=== PATIENT | female | born 1975 | race Caucasian/White ===

== ENCOUNTER 2017-12-01 15:30 | Emergency (ER) | payer SELFPAY ==
--- NOTE | 2017-12-01 16:47 | EDPHYS ---
Physician Documentation [facility] Name: Aundrea Cisneros Age: 42 yrs Sex: Female : 1975 Arrival Date: 12/01/2017 Time: 15:30 Bed 12 Private MD: ED Physician Bret Werner HPI: 12/01 16:40 This 42 yrs old Female presents to ER via Ambulatory with complaints of pm1 Dental pain. 16:40 The patient presents with pain, swelling. The problem is located in the lower left pm1 second molar and lower left first molar. 16:41 Onset: The symptoms/episode began/occurred 1 week(s) ago. Duration: The symptoms are pm1 continuous. Modifying factors: The symptoms are alleviated by nothing, the symptoms are aggravated by chewing, food. Associated signs and symptoms: Pertinent positives: swelling, Pertinent negatives: dysphagia, fever, inability to eat. Severity of symptoms: in the emergency department the symptoms have improved. The patient has experienced similar episodes in the past, several times. Has not seen a dentist in 2 years. Has an appointment next week. Patient with pain to lower right molars last week with right jaw swelling. Right jaw swelling has resolved but now patient with pain to left lower molars. Patient has appointment with dentist next week. 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 - Social history:: Smoking status: Patient/guardian denies using tobacco. ROS: 16:41 Constitutional: Negative for fever, chills, and weight loss, Eyes: Negative for injury, pm1 pain, redness, and discharge. 16:41 Neck: Negative for injury, pain, and swelling, Cardiovascular: Negative for chest pain, palpitations, and edema, Respiratory: Negative for shortness of breath, cough, wheezing, and pleuritic chest pain, Abdomen/GI: Negative for abdominal pain, nausea, vomiting, diarrhea, and constipation, Back: Negative for injury and pain, MS/Extremity: Negative for injury and deformity, Skin: Negative for injury, rash, and discoloration, Neuro: Negative for headache, weakness, numbness, tingling, and seizure. 16:41 ENT: Positive for dental pain, Negative for ear pain, sore throat, difficulty swallowing, difficulty handling secretions, hoarseness. Exam: 16:41 Constitutional: This is a well developed, well nourished patient who is awake, alert, pm1 and in no acute distress. Head/Face: Normocephalic, atraumatic. Eyes: Pupils equal round and reactive to light, extra-ocular motions intact. Lids and lashes normal. Conjunctiva and sclera are non-icteric and not injected. Cornea within normal limits. Periorbital areas with no swelling, redness, or edema. 16:41 Neck: Trachea midline, no thyromegaly or masses palpated, and no cervical lymphadenopathy. Supple, full range of motion without nuchal rigidity, or vertebral point tenderness. No Meningismus. Chest/axilla: Normal chest wall appearance and motion. Nontender with no deformity. No lesions are appreciated. Cardiovascular: Regular rate and rhythm with a normal S1 and S2. No gallops, murmurs, or rubs. Normal PMI, no JVD. No pulse deficits. Respiratory: Lungs have equal breath sounds bilaterally, clear to auscultation and percussion. No rales, rhonchi or wheezes noted. No increased work of breathing, no retractions or nasal flaring. Back: No spinal tenderness. No costovertebral tenderness. Full range of motion. Skin: Warm, dry with normal turgor. Normal color with no rashes, no lesions, and no evidence of cellulitis. MS/ Extremity: Pulses equal, no cyanosis. Neurovascular intact. Full, normal range of motion. 16:41 ENT: External ear(s): are unremarkable, Ear canal(s): are normal, TM's: are normal, Nose: is normal, Mouth: Lips: normal, Oral mucosa: normal, Gums: normal with healthy appearance, Dental exam: dental caries, that is moderate, diffusely, missing teeth, diffusely, pain, that is mild, specifically in the lower left second molar (#18) and lower left first molar (#19). 16:41 Neuro: Orientation: is normal, Motor: is normal, moves all fours, Gait: is steady, at a normal pace, without difficulty. Vital Signs: 15:41 BP 131 / 99; Pulse 92; Resp 20; Temp 98.8; Pulse Ox 97% on R/A; Weight 89.81 kg; Height ph 5 ft. 3 in. (160.02 cm); Pain 10/10; 16:55 BP 127 / 94; Pulse 89; Resp 18; Temp 97.6; Pulse Ox 99% on R/A; Pain 8/10; ph 15:41 Body Mass Index 35.07 (89.81 kg, 160.02 cm) ph MDM: 16:33 Patient medically screened. pm1 16:41 Data reviewed: vital signs. Data interpreted: Pulse oximetry: on room air is 97 %. pm1 Interpretation: normal. Counseling: I had a detailed discussion with the patient and/or guardian regarding: the historical points, exam findings, and any diagnostic results supporting the discharge/admit diagnosis, the need for outpatient follow up, for definitive care, a dentist, to return to the emergency department if symptoms worsen or persist or if there are any questions or concerns that arise at home. Administered Medications: 16:45 Drug: Gab[place] 10 mg-325 mg 1 tabs Route: PO; 16:56 Follow up: Response: No adverse reaction; Pain is decreased ph Disposition: 12/01/17 16:47 Discharged to Home. Impression: Dental pain, Dental caries. - Condition is Stable. - Discharge Instructions: Dental Pain. - Prescriptions for Clindamycin HCl 300 mg Oral Capsule - take 1 capsule by ORAL route every 6 hours for 10 days; 40 capsule. Tylenol- Codeine #3 300-30 mg Oral Tablet - take 2 tablets by ORAL route every 6 hours As needed; 20 tablet. - Medication Reconciliation Form, Thank You Letter, Antibiotic Education, Prescription Opioid Use form. - Follow up: Emergency Department; When: As needed; Reason: Worsening of condition. Follow up: Private Physician; When: 2 - 3 days; Reason: Recheck today's complaints, Continuance of care, Re-evaluation by your physician. - Problem is new. - Symptoms have improved. Addendum: 12/05/2017 07:18 Co-signature as Attending Physician, Bret Werner MD. g s Signatures: Cherelle Barnes RN RN Tiny Crespo RN RN Franklin Israel, SALES ATTENDANT SALES ATTENDANT pm1 Werner, Bret, MD MD gs
--- NOTE | 2017-12-01 16:47 | ER ---
Nurse's Notes [facility] Name: Aundrea Cisneros Age: 42 yrs Sex: Female : 1975 Arrival Date: 12/01/2017 Time: 15:30 Bed 12 Private MD: Diagnosis: Dental pain;Dental caries Presentation: 12/01 15:37 Presenting complaint: Patient states: " I have had an abscess in my mouth since last ph week, the pain started in the left side of my jaw and now it's moved to the the R side. I tried to get into the dentist but they said it would be 2 weeks." Swelling noted to L jaw, denies fever, N/V/D. Transition of care: patient was not received from another setting of care. Onset of symptoms was December 01, 2017. 15:37 Method Of Arrival: Ambulatory ph 15:37 Acuity: ALEXANDRO 4 ph 16:54 Care prior to arrival: None. 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 - Social history:: Smoking status: Patient/guardian denies using tobacco. Screenin:54 Abuse screen: Denies threats or abuse. Denies injuries from another. Nutritional ph screening: No deficits noted. Tuberculosis screening: No symptoms or risk factors identified. Fall Risk None identified. Assessment: 16:30 General: Appears in no apparent distress. uncomfortable, Behavior is calm, cooperative, ph appropriate for age, Denies fever. Pain: Complains of pain in chin, right jaw and left jaw. Neuro: Level of Consciousness is awake, alert, obeys commands, Oriented to person, place, time, situation. Cardiovascular: Capillary refill < 3 seconds Patient's skin is warm and dry. Respiratory: Airway is patent Respiratory effort is even, unlabored, Respiratory pattern is regular, symmetrical. GI: No signs and/or symptoms were reported involving the gastrointestinal system. EENT: Poor dentition noted. Derm: Skin is intact, is healthy with good turgor, Skin is pink, warm \\T\\ dry. Musculoskeletal: Circulation, motion, and sensation intact. Range of motion: intact in all extremities. 16:55 Reassessment: Patient appears in no apparent distress at this time. Patient and/or ph family updated on plan of care and expected duration. Pain level reassessed. Patient is alert, oriented x 3, equal unlabored respirations, skin warm/dry/pink. Patient denies pain at this time. Patient states symptoms have improved. Critical care time stopped, patient has stabilized. Discharged home with pain meds and antibiotics. Vital Signs: 15:41 BP 131 / 99; Pulse 92; Resp 20; Temp 98.8; Pulse Ox 97% on R/A; Weight 89.81 kg; Height ph 5 ft. 3 in. (160.02 cm); Pain 10/10; 16:55 BP 127 / 94; Pulse 89; Resp 18; Temp 97.6; Pulse Ox 99% on R/A; Pain 8/10; ph 15:41 Body Mass Index 35.07 (89.81 kg, 160.02 cm) ph ED Course: 15:30 Patient arrived in ED. as 15:41 Triage completed. ph 15:43 Arm band placed on. ph 16:33 Franklin Israel NP is PHCP. pm1 16:33 Bret Werner MD is Attending Physician. pm1 16:45 Cherelle Barnes RN is Primary Nurse. ss 16:54 Patient has correct armband on for positive identification. Call light in reach. ph 16:54 No provider procedures requiring assistance completed. Patient did not have IV access ph during this emergency room visit. Administered Medications: 16:45 Drug: [place] 10 mg-325 mg 1 tabs Route: PO; ss 16:56 Follow up: Response: No adverse reaction; Pain is decreased ph Outcome: 16:47 Discharge ordered by MD. pm1 16:55 Discharged to home ambulatory. ph 16:55 Condition: good 16:55 Discharge instructions given to patient, Instructed on discharge instructions, follow up and referral plans. medication usage, Demonstrated understanding of instructions, follow-up care, medications. 16:56 Patient left the ED. ph Signatures: Jessica Arceo Shelby, RN RN Tiny Crespo RN RN Franklin Israel NP FRONT OF HOUSE MANAGER pm1
[2017-12-01] MEDS ORDERED: HYDROCODONE/APAP 10/325 TAB ONE (17:01)
[2017-12-01 17:08] VITALS: BP 127/94; TEMP 97.6; O2SAT 99
== END 2017-12-01 16:56 | disposition home or self-care (01) ==
LOC: ER 15:30
DX: K02.9 Dental caries, unspecified (principal)
CPT/HCPCS: 99283

== ENCOUNTER 2018-02-02 19:01 | Emergency (ER) | payer SELFPAY ==
[2018-02-02] MEDS ORDERED: ALBUTEROL 2.5 MG/3 ML NEB SOL ONE (19:26)
[2018-02-02] MEDS ORDERED: DEXAMETHASONE 10 MG/ML VIAL ONE (19:26)
[2018-02-02] MEDS ORDERED: IPRATROPIUM BROM 0.5MG/2.5ML ONE (19:27)
--- NOTE | 2018-02-02 21:32 | ER ---
Nurse's Notes [facility] Name: Aundrea Cisneros Age: 43 yrs Sex: Female : 1975 Arrival Date: 02/02/2018 Time: 19:03 Bed 19 Private MD: None, None Diagnosis: Unspecified asthma with (acute) exacerbation Presentation: 02/02 19:08 Presenting complaint: Patient states: I have a hx of asthma and chronic bronchitis, I lp1 feel heaviness in my chest and feel like I'm wheezing, my head hurts; Denies any fever; States moving lots of boxes from old house with lots of dust. Transition of care: patient was not received from another setting of care. Onset of symptoms was February 01, 2018. Risk Assessment: Do you want to hurt yourself or someone else? Patient reports no desire to harm self or others. Initial Sepsis Screen: Does the patient meet any 2 criteria? No. Patient's initial sepsis screen is negative. Does the patient have a suspected source of infection? No. Patient's initial sepsis screen is negative. Care prior to arrival: None. 19:08 Method Of Arrival: Ambulatory lp1 19:08 Acuity: ALEXANDRO 4 lp1 Triage Assessment: 19:13 General: Appears in no apparent distress. Behavior is calm, cooperative, appropriate lp1 for age. Pain: Complains of pain in head Pain currently is 5 out of 10 on a pain scale. Respiratory: Reports cough that is persistent Onset: The symptoms/episode began/occurred yesterday, the patient has mild shortness of breath. 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 - Social history:: Smoking status: Patient/guardian denies using tobacco. - Ebola Screening: : No symptoms or risks identified at this time. Screenin:13 Abuse screen: Denies threats or abuse. Denies injuries from another. Nutritional lp1 screening: No deficits noted. Tuberculosis screening: No symptoms or risk factors identified. Fall Risk None identified. Assessment: 19:25 General: Appears in no apparent distress. comfortable, Behavior is calm, cooperative, ao appropriate for age. Pain: Denies pain. Neuro: Level of Consciousness is awake, alert, obeys commands, Oriented to person, place, time, situation, Appropriate for age Moves all extremities. Gait is steady, Speech is normal, Facial symmetry appears normal, Pupils are PERRLA. Cardiovascular: Capillary refill < 3 seconds Patient's skin is warm and dry. Pulses are all present. Rhythm is regular. Respiratory: Airway is patent Respiratory effort is even, unlabored, Respiratory pattern is regular, symmetrical, Breath sounds with wheezes in right middle lobe, right lower lobe, right posterior middle lobe and right posterior lower lobe. GI: Abdomen is obese. : No signs and/or symptoms were reported regarding the genitourinary system. EENT: No signs and/or symptoms were reported regarding the EENT system. Derm: Skin is intact. Musculoskeletal: Range of motion: intact in all extremities. 20:17 Reassessment: Patient appears in no apparent distress at this time. Patient and/or ao family updated on plan of care and expected duration. Pain level reassessed. Patient is alert, oriented x 3, equal unlabored respirations, skin warm/dry/pink. Patient still getting a breathing treatment. Patient states that she feel better. 21:20 Reassessment: Patient stated that she was going out to take a blanket for a family ao member. 21:46 Reassessment: Patient has never return from the Lobby. Main lobby personnel had bee ao asked if they notice the patient still there and stated that she left with another person who was her. Patient has been discharge by GABRIEL Reid. Patient VS were stable before she left and she stated that she feel better. Patient didn't have an IV and no need to inform authorities at this moment. Will retain her DC paper with a prescription of prednisone for a while if patient comes back. Vital Signs: 19:12 BP 122 / 90; Pulse 88; Resp 18; Temp 99.5(O); Pulse Ox 99% on R/A; Weight 87.54 kg; lp1 Height 5 ft. 3 in. (160.02 cm); 20:17 BP 127 / 53; Pulse 93; Resp 18; Temp 99.0; Pulse Ox 100% on R/A; Pain 0/10; ao 19:12 Body Mass Index 34.19 (87.54 kg, 160.02 cm) lp1 ED Course: 19:03 Patient arrived in ED. mr 19:03 None, None is Private Physician. mr 19:11 Triage completed. lp1 19:12 Arm band placed on left wrist. lp1 19:14 Franklin Israel NP is PHCP. pm1 19:14 Hyun Swift MD is Attending Physician. pm1 19:14 Ramón Mc, RN is Primary Nurse. ao 19:52 Patient has correct armband on for positive identification. Pulse ox on. NIBP on. ao 21:46 No provider procedures requiring assistance completed. Patient did not have IV access ao during this emergency room visit. Administered Medications: 19:30 Drug: Albuterol 2.5 mg Route: Inhalation; ao 19:47 Drug: Decadron 10 mg Route: IM; Site: right deltoid; ao 21:48 Follow up: Response: No adverse reaction ao 19:48 Drug: AtroVENT Aerosol 0.5 mg Route: Inhalation; ao Outcome: 21:31 Discharge ordered by . pm1 21:47 Discharged to home ambulatory, Patient left before signing discharge papers ao 21:47 Condition: stable 21:47 Discharge instructions given to Patient left before signing DC papers 21:48 Patient left the ED. ao Signatures: Annette Brody Laura, RN RN lp1 Ramón Mc RN RN ao Franklin Israel NP FISHERIES OFFICER pm1
--- NOTE | 2018-02-02 21:32 | EDPHYS ---
Physician Documentation [facility] Name: Aundrea Cisneros Age: 43 yrs Sex: Female : 1975 Arrival Date: 02/02/2018 Time: 19:03 Bed 19 Private MD: None, None ED Physician Hyun Swift HPI: 02/02 21:00 This 43 yrs old Female presents to ER via Ambulatory with complaints of pm1 Breathing Difficulty, Cough. 21:00 The patient has shortness of breath at rest. Onset: The symptoms/episode began/occurred pm1 yesterday. Duration: The symptoms are continuous. The patient's shortness of breath is aggravated by dust, is alleviated by nothing. Associated signs and symptoms: Pertinent positives: non-productive cough, Pertinent negatives: chest pain, fever. Severity of symptoms: Pain is currently a 0 / 10. The patient has not recently seen a physician. Patient was moving some old boxes and got exposed to dust. Patient with onset of wheezing. Hx of asthma. Inhalers at home did not work. 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 - Social history:: Smoking status: Patient/guardian denies using tobacco. - Ebola Screening: : No symptoms or risks identified at this time. ROS: 21:00 Constitutional: Negative for fever, chills, and weight loss, Eyes: Negative for injury, pm1 pain, redness, and discharge, ENT: Negative for injury, pain, and discharge, Neck: Negative for injury, pain, and swelling, Cardiovascular: Negative for chest pain, palpitations, and edema. 21:00 Abdomen/GI: Negative for abdominal pain, nausea, vomiting, diarrhea, and constipation, Back: Negative for injury and pain, : Negative for injury, bleeding, discharge, and swelling, MS/Extremity: Negative for injury and deformity, Skin: Negative for injury, rash, and discoloration, Neuro: Negative for headache, weakness, numbness, tingling, and seizure. 21:00 Respiratory: Positive for cough, shortness of breath, wheezing. Exam: 21:00 Constitutional: This is a well developed, well nourished patient who is awake, alert, pm1 and in no acute distress. Head/Face: Normocephalic, atraumatic. Eyes: Pupils equal round and reactive to light, extra-ocular motions intact. Lids and lashes normal. Conjunctiva and sclera are non-icteric and not injected. Cornea within normal limits. Periorbital areas with no swelling, redness, or edema. ENT: Nares patent. No nasal discharge, no septal abnormalities noted. Tympanic membranes are normal and external auditory canals are clear. Oropharynx with no redness, swelling, or masses, exudates, or evidence of obstruction, uvula midline. Mucous membranes moist. Neck: Trachea midline, no thyromegaly or masses palpated, and no cervical lymphadenopathy. Supple, full range of motion without nuchal rigidity, or vertebral point tenderness. No Meningismus. Chest/axilla: Normal chest wall appearance and motion. Nontender with no deformity. No lesions are appreciated. Cardiovascular: Regular rate and rhythm with a normal S1 and S2. No gallops, murmurs, or rubs. Normal PMI, no JVD. No pulse deficits. 21:00 Abdomen/GI: Soft, non-tender, with normal bowel sounds. No distension or tympany. No guarding or rebound. No evidence of tenderness throughout. Back: No spinal tenderness. No costovertebral tenderness. Full range of motion. Skin: Warm, dry with normal turgor. Normal color with no rashes, no lesions, and no evidence of cellulitis. MS/ Extremity: Pulses equal, no cyanosis. Neurovascular intact. Full, normal range of motion. Neuro: Awake and alert, GCS 15, oriented to person, place, time, and situation. Cranial nerves II-XII grossly intact. Motor strength 5/5 in all extremities. Sensory grossly intact. Cerebellar exam normal. Normal gait. 21:00 Respiratory: the patient does not display signs of respiratory distress, Respirations: normal, Breath sounds: wheezing: that is mild, is heard diffusely. Vital Signs: 19:12 BP 122 / 90; Pulse 88; Resp 18; Temp 99.5(O); Pulse Ox 99% on R/A; Weight 87.54 kg; lp1 Height 5 ft. 3 in. (160.02 cm); 20:17 BP 127 / 53; Pulse 93; Resp 18; Temp 99.0; Pulse Ox 100% on R/A; Pain 0/10; ao 19:12 Body Mass Index 34.19 (87.54 kg, 160.02 cm) lp1 MDM: 19:14 Patient medically screened. pm1 21:31 Data reviewed: vital signs. Data interpreted: Pulse oximetry: on room air is 100 %. pm1 Interpretation: normal. Counseling: I had a detailed discussion with the patient and/or guardian regarding: the historical points, exam findings, and any diagnostic results supporting the discharge/admit diagnosis, the need for outpatient follow up, to return to the emergency department if symptoms worsen or persist or if there are any questions or concerns that arise at home. Administered Medications: 19:30 Drug: Albuterol 2.5 mg Route: Inhalation; ao 19:47 Drug: Decadron 10 mg Route: IM; Site: right deltoid; ao 21:48 Follow up: Response: No adverse reaction ao 19:48 Drug: AtroVENT Aerosol 0.5 mg Route: Inhalation; ao Disposition: 02/02/18 21:31 Discharged to Home. Impression: Unspecified asthma with (acute) exacerbation. - Condition is Stable. - Discharge Instructions: Asthma, Adult, How to Use an Inhaler. - Prescriptions for Prednisone 20 mg Oral Tablet - take 3 tablet by ORAL route once daily for 5 days; 15 tablet. - Medication Reconciliation Form, Thank You Letter, Antibiotic Education form. - Follow up: Emergency Department; When: As needed; Reason: Worsening of condition. Follow up: Private Physician; When: 2 - 3 days; Reason: Recheck today's complaints, Continuance of care, Re-evaluation by your physician. - Problem is new. - Symptoms have improved. Addendum: 03/23/2018 07:25 Co-signature as Attending Physician, Hyun Swift MD. m a2 Signatures: Mitali Smith RN RN lp1 Ramón Mc RN RN ao Franklin Israel, GABRIEL TECHNICAL SALES SUPPORT SPECIALIST pm1 Hyun Swift MD MD pa2 Corrections: (The following items were deleted from the chart) 02/02 21:48 21:31 02/02/2018 21:31 Discharged to Home. Impression: Unspecified asthma with (acute) ao exacerbation. Condition is Stable. Forms are Medication Reconciliation Form, Thank You Letter, Antibiotic Education, Prescription Opioid Use. Follow up: Emergency Department; When: As needed; Reason: Worsening of condition. Follow up: Private Physician; When: 2 - 3 days; Reason: Recheck today's complaints, Continuance of care, Re-evaluation by your physician. Problem is new. Symptoms have improved. pm1
[2018-02-02 21:52] VITALS: BP 127/53; TEMP 99; O2SAT 100
== END 2018-02-02 21:48 | disposition home or self-care (01) ==
LOC: ER 19:01
DX: J45.901 Unspecified asthma with (acute) exacerbation (principal)
CPT/HCPCS: 96372; 99284; J1100

== ENCOUNTER 2018-12-02 08:31 | Emergency (ER) | payer BC, SELFPAY ==
--- OUTSIDE RECORDS SUMMARY | 2018-12-02 08:34 | XMS REPORT ---
:1975 [facility] Address [address] [place] [address] Dr. Gruber [address] [place] [id number] Care Team Providers Name Role Phone Unavailable Unavailable Unavailable Problems This patient has no known problems. Allergies, Adverse Reactions, Alerts This patient has no known allergies or adverse reactions. Medications This patient has no known medications.
--- NOTE | 2018-12-02 09:23 | RAD REPORT ---
EXAM DESCRIPTION: RAD - Knee Left 3 View - 12/02/2018 9:15 am CLINICAL HISTORY: PAIN COMPARISON: No comparisons FINDINGS: No acute fracture or dislocation seen. No suprapatellar joint effusion.
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
[2018-12-02] MEDS ORDERED: KETOROLAC 30 MG/ML INJ ONE (10:24)
[2018-12-02 10:45] VITALS: BP 114/83; TEMP 98.1; O2SAT 98
== END 2018-12-02 10:38 | disposition home or self-care (01) ==
LOC: ER 08:31
DX: M23.92 Unspecified internal derangement of left knee (principal); J45.909 Unspecified asthma, uncomplicated
CPT/HCPCS: 96372; 99284

== ENCOUNTER 2019-03-14 14:09 | Emergency (ER) | payer BC ==
--- OUTSIDE RECORDS SUMMARY | 2019-03-14 14:11 | XMS REPORT ---
:1975 [facility] Address [address] [place] [address] [place] [id number] Care Team Providers Name Role Phone Unavailable Unavailable Unavailable Problems This patient has no known problems. Allergies, Adverse Reactions, Alerts This patient has no known allergies or adverse reactions. Medications This patient has no known medications.
[2019-03-14] MEDS ORDERED: IPRATROPIUM BROM 0.5MG/2.5ML ONE (14:44)
[2019-03-14] MEDS ORDERED: ALBUTEROL 2.5 MG/3 ML NEB SOL ONE (14:44)
[2019-03-14] MEDS ORDERED: predniSONE 20 MG TAB ONE (14:45)
[2019-03-14 14:49] LABS: Absolute Lymphocytes (CBC) 1.1 K/uL (0.7-4.9); Basophils % 0.2 % (0-1.3); Eosinophils % 0.3 % (0-4.4); Hematocrit 39.3 % (36.0-45.0); Lymphocytes % 7.1 % (15.3-44.8); MPV 8.9 fL (7.6-11.3); Monocytes % 2.4 % (3.3-12.3); RBC Red Blood Cell Count 4.34 M/uL (3.86-4.86)
[2019-03-14 14:51] LABS: Protime INR 1.07
[2019-03-14 15:09] LABS: ALT/SGPT 29 U/L (12-78); AST/SGOT 16 U/L (15-37); Albumin 3.5 g/dL (3.4-5.0); Alkaline Phosphatase 95 U/L (45-117); BUN Blood Urea Nitrogen 14 mg/dL (7-18); Bicarbonate 24 mmol/L (21-32); Bilirubin Direct < 0.1 mg/dL (0-0.2); Bilirubin Total 0.2 mg/dL (0.2-1.0); Glucose Level 158 mg/dL (74-106); Magnesium 2.2 mg/dL (1.8-2.4); NT PRO-BNP 27 pg/mL (<125); Potassium 3.7 mmol/L (3.5-5.1); Sodium Level 142 mmol/L (136-145)
--- NOTE | 2019-03-14 15:11 | RAD REPORT ---
EXAM DESCRIPTION: RAD - Chest Pa And Lat (2 Views) - 03/14/2019 2:45 pm CLINICAL HISTORY: SOB;Cough Chest pain. COMPARISON: <Comparisons> FINDINGS: The lungs are clear. The heart is normal in size. No displaced fractures. IMPRESSION: No acute or concerning finding suspected.
[2019-03-14 15:20] LABS: Blood Morphology Comment NOT SEEN (NOT SEEN); Platelet Estimate ADEQ; Urine White Blood Cell Casts OK
[2019-03-14] MEDS ORDERED: HYDROCODONE/CHLORPHEN 5 ML/OSYR ONE (16:21)
--- NOTE | 2019-03-14 16:30 | EDPHYS ---
Physician Documentation [facility] Name: Aundrea Cisneros Age: 44 yrs Sex: Female : 1975 Arrival Date: 03/14/2019 Time: 14:12 Bed 19 Private MD: None, None ED Physician Hyun Swift HPI: 03/14 14:37 This 44 yrs old Female presents to ER via Ambulatory with complaints of pm1 Cough, Breathing Difficulty. 14:37 The patient or guardian reports cough, difficulty breathing. Onset: The pm1 symptoms/episode began/occurred 1 week(s) ago. Severity of symptoms: in the emergency department the symptoms are unchanged. Modifying factors: The symptoms are alleviated by inhaler. Associated signs and symptoms: Pertinent positives: post nasal drainage. The patient has experienced similar episodes in the past, multiple times. The patient has been recently seen by a physician: diagnosed with sinusitis and bronchitis and prescribed amoxicillin, guaifenesin with codeine, steroids, and albuterol inhaler two days ago. 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 - Ebola Screening: : Patient negative for fever greater than or equal to 101.5 degrees Fahrenheit, and additional compatible Ebola Virus Disease symptoms Patient denies exposure to infectious person Patient denies travel to an Ebola-affected area in the 21 days before illness onset No symptoms or risks identified at this time. - Social history:: Smoking status: unknown. ROS: 14:37 Constitutional: Negative for fever, chills, and weight loss, Eyes: Negative for injury, pm1 pain, redness, and discharge, ENT: Negative for injury, pain, and discharge, Neck: Negative for injury, pain, and swelling, Cardiovascular: Negative for chest pain, palpitations, and edema. 14:37 Abdomen/GI: Negative for abdominal pain, nausea, vomiting, diarrhea, and constipation, Back: Negative for injury and pain, MS/Extremity: Negative for injury and deformity, Skin: Negative for injury, rash, and discoloration, Neuro: Negative for headache, weakness, numbness, tingling, and seizure. 14:37 Respiratory: Positive for cough, shortness of breath. Exam: 14:37 Constitutional: This is a well developed, well nourished patient who is awake, alert, pm1 and in no acute distress. Head/Face: Normocephalic, atraumatic. Eyes: Pupils equal round and reactive to light, extra-ocular motions intact. Lids and lashes normal. Conjunctiva and sclera are non-icteric and not injected. Cornea within normal limits. Periorbital areas with no swelling, redness, or edema. ENT: Nares patent. No nasal discharge, no septal abnormalities noted. Tympanic membranes are normal and external auditory canals are clear. Oropharynx with no redness, swelling, or masses, exudates, or evidence of obstruction, uvula midline. Mucous membranes moist. Neck: Trachea midline, no thyromegaly or masses palpated, and no cervical lymphadenopathy. Supple, full range of motion without nuchal rigidity, or vertebral point tenderness. No Meningismus. Chest/axilla: Normal chest wall appearance and motion. Nontender with no deformity. No lesions are appreciated. Cardiovascular: Regular rate and rhythm with a normal S1 and S2. No gallops, murmurs, or rubs. Normal PMI, no JVD. No pulse deficits. Respiratory: Lungs have equal breath sounds bilaterally, clear to auscultation and percussion. No rales, rhonchi or wheezes noted. No increased work of breathing, no retractions or nasal flaring. Abdomen/GI: Soft, non-tender, with normal bowel sounds. No distension or tympany. No guarding or rebound. No evidence of tenderness throughout. Back: No spinal tenderness. No costovertebral tenderness. Full range of motion. Skin: Warm, dry with normal turgor. Normal color with no rashes, no lesions, and no evidence of cellulitis. MS/ Extremity: Pulses equal, no cyanosis. Neurovascular intact. Full, normal range of motion. 14:37 Neuro: Orientation: is normal, Motor: is normal, moves all fours, Sensation: is normal, no obvious gross deficits, Gait: is steady, at a normal pace, without difficulty. Vital Signs: 14:26 BP 131 / 70; Pulse 98; Resp 20 S; Temp 97.5(TE); Pulse Ox 96% on R/A; iw 15:36 BP 112 / 74; Pulse 113; Resp 20; Pulse Ox 95% on R/A; em 16:30 BP 118 / 65; Pulse 104; Resp 20; Pulse Ox 95% on R/A; em MDM: 14:18 Patient medically screened. pm1 16:28 Data reviewed: vital signs. Data interpreted: Pulse oximetry: on room air is 95 %. pm1 Interpretation: normal. Counseling: I had a detailed discussion with the patient and/or guardian regarding: the historical points, exam findings, and any diagnostic results supporting the discharge/admit diagnosis, lab results, radiology results, the need for outpatient follow up, to return to the emergency department if symptoms worsen or persist or if there are any questions or concerns that arise at home. 03/14 14:25 Order name: Basic Metabolic Panel pm1 03/14 14:25 Order name: CBC with Diff; Complete Time: 15:36 pm1 03/14 14:25 Order name: LFT's; Complete Time: 15:16 pm1 03/14 14:25 Order name: Magnesium; Complete Time: 15:16 pm1 03/14 14:25 Order name: NT PRO-BNP; Complete Time: 15:16 pm1 03/14 14:25 Order name: PT-INR; Complete Time: 15:16 pm1 03/14 14:25 Order name: Chest Pa And Lat (2 Views) XRAY; Complete Time: 15:16 pm1 03/14 14:25 Order name: EKG; Complete Time: 14:27 pm1 03/14 14:25 Order name: IV Saline Lock; Complete Time: 14:42 pm03/14 14:26 Order name: Basic Metabolic Panel; Complete Time: 15:16 EDMS 03/14 14:50 Order name: CBC Smear Scan; Complete Time: 15:36 EDMS 03/14 14:25 Order name: Labs collected and sent; Complete Time: 14:42 pm1 03/14 14:25 Order name: O2 Per Protocol; Complete Time: 14:42 pm1 03/14 14:25 Order name: O2 Sat Monitoring; Complete Time: 14:42 pm1 Administered Medications: 14:35 Drug: Albuterol - atroVENT (3:1) (2.5 mg - 0.5 mg) 3 ml Route: Nebulizer; em 15:16 Follow up: Response: No adverse reaction; Marked relief of symptoms em 14:35 Drug: predniSONE 60 mg Route: PO; em 15:16 Follow up: Response: No adverse reaction em 16:44 Not Given (Patient Refused): Tussionex Pennkinetic ER 5 ml PO once em Disposition: 03/14/19 16:29 Discharged to Home. Impression: Bronchitis, not specified as acute or chronic. - Condition is Stable. - Discharge Instructions: Acute Bronchitis, Adult, How to Use an Inhaler. - Medication Reconciliation Form, Thank You Letter, Antibiotic Education, Prescription Opioid Use form. - Follow up: Emergency Department; When: As needed; Reason: Worsening of condition. Follow up: Private Physician; When: 2 - 3 days; Reason: Recheck today's complaints, Continuance of care, Re-evaluation by your physician. - Problem is new. - Symptoms have improved. - Notes: Continue taking the antibiotics, steroids, andcough medications prescribed to you Addendum: 03/19/2019 02:08 Co-signature as Attending Physician, Hyun Swift MD. m a2 Signatures: Dispatcher [employer] EDWA Jeff Patterson, PAINTER BARREL PAINTER BARREL em Evie Parks RN RN iw [place] NP FLOOR POLISHER pm1 Hyun Swift MD MD ma2 Corrections: (The following items were deleted from the chart) 03/14 16:59 16:29 03/14/2019 16:29 Discharged to Home. Impression: Bronchitis, not specified as em acute or chronic. Condition is Stable. Forms are Medication Reconciliation Form, Thank You Letter, Antibiotic Education, Prescription Opioid Use. Follow up: Emergency Department; When: As needed; Reason: Worsening of condition. Follow up: Private Physician; When: 2 - 3 days; Reason: Recheck today's complaints, Continuance of care, Re-evaluation by your physician. Problem is new. Symptoms have improved. pm1
--- NOTE | 2019-03-14 16:30 | ER ---
Nurse's Notes [facility] Name: Aundrea Cisneros Age: 44 yrs Sex: Female : 1975 Arrival Date: 03/14/2019 Time: 14:12 Bed 19 Private MD: None, None Diagnosis: Bronchitis, not specified as acute or chronic Presentation: 03/14 14:23 Presenting complaint: Patient states: hx of chronic bronchitis, was prescribed iw amoxicillin, a steroid and cough syrup last weekend for sinusitis, has had increasing SOB on exertion since Saturday, cough that keeps her up at night. Transition of care: patient was not received from another setting of care. Onset of symptoms was March 13, 2019. Risk Assessment: Do you want to hurt yourself or someone else? Patient reports no desire to harm self or others. Initial Sepsis Screen: Does the patient meet any 2 criteria? No. Patient's initial sepsis screen is negative. Does the patient have a suspected source of infection? No. Patient's initial sepsis screen is negative. Care prior to arrival: None. 14:23 Method Of Arrival: Ambulatory iw 14:23 Acuity: ALEXANDRO 3 iw Triage Assessment: 14:40 Respiratory: the patient has mild shortness of breath. iw 15:00 Respiratory: Onset: The symptoms/episode began/occurred this morning. 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 - Ebola Screening: : Patient negative for fever greater than or equal to 101.5 degrees Fahrenheit, and additional compatible Ebola Virus Disease symptoms Patient denies exposure to infectious person Patient denies travel to an Ebola-affected area in the 21 days before illness onset No symptoms or risks identified at this time. - Social history:: Smoking status: unknown. Screenin:20 Abuse screen: Denies threats or abuse. Nutritional screening: No deficits noted. em Tuberculosis screening: No symptoms or risk factors identified. Fall Risk None identified. Assessment: 14:30 General: Appears in no apparent distress. comfortable, Behavior is calm, cooperative, em Denies fever. Pain: Complains of pain in mid-sternal area Pain currently is 4 out of 10 on a pain scale. Neuro: Level of Consciousness is awake, alert, obeys commands, Oriented to person, place, time, situation, Appropriate for age. Cardiovascular: Denies chest pain, Capillary refill < 3 seconds Patient's skin is warm and dry. Rhythm is sinus tachycardia. Respiratory: Reports cough that is productive, pain with cough Airway is patent Respiratory effort is even, unlabored, Breath sounds are clear bilaterally. Derm: Skin is intact, is healthy with good turgor, Skin is pink, warm \T\ dry. Musculoskeletal: Capillary refill < 3 seconds, Range of motion: intact in all extremities. 15:00 Reassessment: Patient appears in no apparent distress at this time. I agree with above iw assessment by Jeff Ptaterson LVN. 15:46 Reassessment: Patient appears in no apparent distress at this time. Patient and/or em family updated on plan of care and expected duration. Pain level reassessed. Patient is alert, oriented x 3, equal unlabored respirations, skin warm/dry/pink. 16:20 Reassessment: Patient appears in no apparent distress at this time. currently refuses em Mike because she is unable to get a safe ride home, provider notified Patient states feeling better. Patient states symptoms have improved. Vital Signs: 14:26 BP 131 / 70; Pulse 98; Resp 20 S; Temp 97.5(TE); Pulse Ox 96% on R/A; iw 15:36 BP 112 / 74; Pulse 113; Resp 20; Pulse Ox 95% on R/A; em 16:30 BP 118 / 65; Pulse 104; Resp 20; Pulse Ox 95% on R/A; em ED Course: 14:12 Patient arrived in ED. mr 14:13 None, None is Private Physician. mr 14:15 Franklin Israel, GABRIEL is PHCP. pm1 14:15 Hyun Swift MD is Attending Physician. pm1 14:19 Evie Parks, PEPE is Primary Nurse. iw 14:20 Patient has correct armband on for positive identification. Bed in low position. Call em light in reach. Pulse ox on. NIBP on. 14:25 Triage completed. iw 14:27 Arm band placed on. iw 14:30 Initial lab(s) drawn, by me, sent to lab. Inserted saline lock: 20 gauge in right em antecubital area, using aseptic technique. Blood collected. 14:43 Chest Pa And Lat (2 Views) XRAY In Process Unspecified. EDMS 15:00 EKG done, by ED staff, reviewed by Franklin Israel NP. 3 16:58 No provider procedures requiring assistance completed. IV discontinued, intact, em bleeding controlled, No redness/swelling at site. Pressure dressing applied. Administered Medications: 14:35 Drug: Albuterol - atroVENT (3:1) (2.5 mg - 0.5 mg) 3 ml Route: Nebulizer; em 15:16 Follow up: Response: No adverse reaction; Marked relief of symptoms em 14:35 Drug: predniSONE 60 mg Route: PO; em 15:16 Follow up: Response: No adverse reaction em 16:44 Not Given (Patient Refused): Tussionex Pennkinetic ER 5 ml PO once em Outcome: 16:29 Discharge ordered by MD. pm1 16:59 Discharged to home ambulatory. em 16:59 Condition: good 16:59 Discharge instructions given to patient, Instructed on discharge instructions, follow up and referral plans. Demonstrated understanding of instructions, follow-up care. 16:59 Patient left the ED. em Signatures: Dispatcher [employer] MANAVNE Magdalene Brody, Jeff, EMERY WHEEL WORKER EMERY WHEEL WORKER em Evie Parks RN RN Franklin Harper NP CITY JAILER 1 Jami Adhikari 3 Corrections: (The following items were deleted from the chart) 14:26 14:23 Acuity: ALEXANDRO 4 meek
[2019-03-14 17:17] VITALS: TEMP 97.5
[2019-03-14 17:20] VITALS: O2SAT 95
[2019-03-14 17:22] VITALS: BP 118/65
--- NOTE | 2019-03-15 08:44 | EKG ---
Test Date: 2019-03-14 Test Time: 15:00:06 Rag Washer: SUELLEN MEASUREMENT RESULTS: Intervals: Rate: 97 ND: 140 QRSD: 84 QT: 346 QTc: 439 Wilson: P: 28 ND: 140 QRS: 8 T: 5 INTERPRETIVE STATEMENTS: Normal sinus rhythm Nonspecific T wave abnormality Abnormal ECG No previous ECG available for comparison Electronically Signed On 03-15-19 08:42:28 CDT by Rey Chu
== END 2019-03-14 16:59 | disposition home or self-care (01) ==
LOC: ER 14:09
DX: J40 Bronchitis, not specified as acute or chronic (principal); J45.909 Unspecified asthma, uncomplicated
CPT/HCPCS: 36415; 71046; 80048; 80076; 83735; 83880; 85025; 85610; 93005; 94640; 99285; J7512

== ENCOUNTER 2019-06-29 17:55 | Emergency (ER) | payer SELFPAY ==
[2019-06-29] MEDS ORDERED: IPRATROPIUM BROM 0.5MG/2.5ML ONE (19:25)
[2019-06-29] MEDS ORDERED: ALBUTEROL 2.5 MG/3 ML NEB SOL ONE (19:25)
[2019-06-29 19:53] LABS: Absolute Lymphocytes (CBC) 1.3 K/uL (0.7-4.9); Basophils % 0.7 % (0-1.3); Hematocrit 37.1 % (36.0-45.0); Lymphocytes % 23.4 % (15.3-44.8); MPV 9.3 fL (7.6-11.3); RBC Red Blood Cell Count 4.16 M/uL (3.86-4.86)
[2019-06-29 19:55] LABS: Protime INR 1.08
[2019-06-29 20:12] LABS: ALT/SGPT 40 U/L (12-78); AST/SGOT 30 U/L (15-37); Albumin 3.5 g/dL (3.4-5.0); Alkaline Phosphatase 97 U/L (45-117); BUN Blood Urea Nitrogen 11 mg/dL (7-18); Bicarbonate 23 mmol/L (21-32); Bilirubin Direct 0.1 mg/dL (0-0.2); Bilirubin Total 0.5 mg/dL (0.2-1.0); Glucose Level 93 mg/dL (74-106); Magnesium 2.1 mg/dL (1.8-2.4); NT PRO-BNP 9 pg/mL (<125); Potassium 3.4 mmol/L (3.5-5.1); Protein, Total 7.5 g/dL (6.4-8.2); Sodium Level 140 mmol/L (136-145); Troponin (Emerg Dept Use Only) < 0.02 ng/mL (0.0-0.045)
--- NOTE | 2019-06-29 20:32 | RAD REPORT ---
EXAM DESCRIPTION: RAD - Chest Pa And Lat (2 Views) - 06/29/2019 7:23 pm CLINICAL HISTORY: COUGH, chronic bronchitis COMPARISON: March 2019 TECHNIQUE: PA and lateral views of the chest were obtained. FINDINGS: The lungs are clear. Lung markings are similar to comparison. Heart size is normal and ce ntral vasculature is within normal limits. No pleural effusion or pneumothorax seen. No acute bony finding noted. No aortic abnormality. IMPRESSION: No acute cardiopulmonary process. No significant interval change.
--- NOTE | 2019-06-29 20:53 | EDPHYS ---
Physician Documentation [facility] Name: Aundrea Cisneros Age: 44 yrs Sex: Female : 1975 Arrival Date: 06/29/2019 Time: 17:56 Bed 23 Private MD: ED Physician Mario Canales HPI: 06/29 19:20 This 44 yrs old Female presents to ER via Ambulatory with complaints of cp Breathing Difficulty, Cough. 19:20 The patient has shortness of breath at rest. Onset: The symptoms/episode began/occurred cp yesterday. 19:20 Associated signs and symptoms: Pertinent positives: chest pain, non-productive cough, cp Pertinent negatives: productive cough, fever, hemoptysis, vomiting. Severity of symptoms: in the emergency department the symptoms are unchanged despite home interventions. 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 - Social history:: Smoking status: Patient/guardian denies using tobacco. - Ebola Screening: : Patient negative for fever greater than or equal to 101.5 degrees Fahrenheit, and additional compatible Ebola Virus Disease symptoms Patient denies exposure to infectious person Patient denies travel to an Ebola-affected area in the 21 days before illness onset No symptoms or risks identified at this time. ROS: 19:25 Constitutional: Negative for body aches, chills, fever, poor PO intake. cp 19:25 Eyes: Negative for injury, pain, redness, and discharge. cp 19:25 ENT: Negative for drainage from ear(s), ear pain, sinus congestion, sinus pain, difficulty swallowing, difficulty handling secretions. 19:25 Cardiovascular: Positive for chest pain, with cough, Negative for edema, palpitations. 19:25 Respiratory: Positive for cough, with no reported sputum, shortness of breath, at rest. Negative for wheezing. 19:25 Abdomen/GI: Negative for abdominal pain, nausea, vomiting, and diarrhea. 19:25 : Negative for urinary symptoms. 19:25 Skin: Negative for cellulitis, rash. 19:25 Neuro: Negative for altered mental status, headache, syncope, weakness. 19:25 All other systems are negative. Exam: 19:35 Constitutional: The patient appears in no acute distress, alert, awake, cp non-diaphoretic, non-toxic, well developed, well nourished, obese. 19:35 Head/Face: Normocephalic, atraumatic. cp 19:35 Eyes: Periorbital structures: appear normal, Conjunctiva: normal, no exudate, no injection, Sclera: no appreciated abnormality, Lids and lashes: appear normal, bilaterally. 19:35 ENT: External ear(s): are unremarkable, Nose: is normal, Mouth: is normal, Posterior pharynx: is normal, airway is patent, no erythema, no exudate. 19:35 Chest/axilla: Inspection: normal, Palpation: is normal, no crepitus, no tenderness. 19:35 Cardiovascular: Rate: normal, Rhythm: regular, Edema: is not appreciated, JVD: is not appreciated. 19:35 Respiratory: the patient does not display signs of respiratory distress, Respirations: normal, no use of accessory muscles, no retractions, no splinting, no tachypnea, labored breathing, is not present, Breath sounds: decreased breath sounds, are not appreciated, stridor, is not appreciated, wheezing: is not appreciated. 19:35 Abdomen/GI: Inspection: abdomen appears normal, Palpation: abdomen is soft and non-tender, in all quadrants. 19:35 Back: pain, is absent, ROM is normal. 19:35 Neuro: Orientation: to person, place \T\ time. Mentation: is normal, Motor: moves all fours, strength is normal. 19:45 ECG was reviewed by the Attending Physician. cp Vital Signs: 18:49 Pulse Ox 98% on R/A; iw 19:13 BP 109 / 70; Pulse 92; Resp 18; Temp 97.6; Pulse Ox 99% on R/A; Weight 92.08 kg; Height aa1 5 ft. 3 in. (160.02 cm); Pain 0/10; 20:42 BP 103 / 71; Pulse 88; Resp 18; Pulse Ox 97% on R/A; mg2 19:13 Body Mass Index 35.96 (92.08 kg, 160.02 cm) aa1 MDM: 19:12 Patient medically screened. cp 19:35 Differential diagnosis: asthma, Bronchitis CHF exacerbation, pneumonia, Pneumothorax cp pulmonary edema, Pulmonary Embolism influenza. 20:50 Data reviewed: vital signs, nurses notes, lab test result(s), EKG, radiologic studies, cp plain films, and as a result, I will discharge patient. 20:51 Antibiotic administration: Not indicated, the patient does not have an appreciated cp infiltrate. 20:51 Test interpretation: by ED physician or midlevel provider: plain radiologic studies, cp chest xray negative for infiltrates. Counseling: I had a detailed discussion with the patient and/or guardian regarding: the historical points, exam findings, and any diagnostic results supporting the discharge/admit diagnosis, lab results, radiology results, to return to the emergency department if symptoms worsen or persist or if there are any questions or concerns that arise at home. Response to treatment: the patient's symptoms have mildly improved after treatment, Patient reports cough and shortness of breath improved with treatment, and as a result, I will discharge patient. 06/29 19:17 Order name: Basic Metabolic Panel; Complete Time: 20:22 06/29 20:22 Interpretation: Normal except: K 3.4; CL 109; CA 8.3. 06/29 19:17 Order name: CBC with Diff; Complete Time: 20:22 06/29 20:22 Interpretation: Reviewed. 06/29 19:17 Order name: LFT's; Complete Time: 20:22 06/29 20:22 Interpretation: Normal except: GLOB 4.0; A/G 0.9. 06/29 19:17 Order name: Magnesium; Complete Time: 20:22 06/29 19:17 Order name: NT PRO-BNP; Complete Time: 20:22 06/29 19:17 Order name: PT-INR; Complete Time: 20:22 06/29 18:36 Order name: Chest Pa And Lat (2 Views) XRAY; Complete Time: 20:47 iw 06/29 20:47 Interpretation: Report reviewed. 06/29 19:17 Order name: Troponin (emerg Dept Use Only); Complete Time: 20:22 06/29 20:23 Interpretation: Reviewed. 06/29 19:17 Order name: EKG; Complete Time: 19:18 06/29 19:17 Order name: Cardiac monitoring; Complete Time: 19:40 cp 06/29 19:17 Order name: EKG - Nurse/Tech; Complete Time: 19:40 cp 06/29 19:17 Order name: Influenza Screen (a \T\ B); Complete Time: 20:22 cp 06/29 20:23 Interpretation: Reviewed. cp 06/29 19:17 Order name: IV Saline Lock; Complete Time: 19:40 cp 06/29 19:17 Order name: Labs collected and sent; Complete Time: 19:40 cp 06/29 19:17 Order name: O2 Per Protocol; Complete Time: 19:40 cp 06/29 19:17 Order name: O2 Sat Monitoring; Complete Time: 19:41 cp EC:45 Rate is 88 beats/min. Rhythm is regular. VT interval is normal. QRS interval is normal. cp QT interval is normal. Interpreted by me. Reviewed by me. Administered Medications: 19:43 Drug: Albuterol 2.5 mg Route: Inhalation; mg2 21:05 Follow up: Response: No adverse reaction; Marked relief of symptoms mg2 19:43 Drug: AtroVENT Aerosol 0.5 mg Route: Inhalation; mg2 21:05 Follow up: Response: No adverse reaction; Marked relief of symptoms mg2 Disposition: 06/30 07:02 Co-signature as Attending Physician, Mario Canales MD. rn Disposition: 06/29/19 20:52 Discharged to Home. Impression: Cough, Shortness of breath. - Condition is Stable. - Discharge Instructions: Shortness of Breath, Cough, Adult. - Prescriptions for Tessalon Perles 100 mg Oral Capsule - take 2 capsule by ORAL route every 8 hours As needed; 20 capsule. Albuterol Sulfate 90 mcg/actuation - inhale 1-2 puff by INHALATION route every 4-6 hours; 1 Inhaler. - Medication Reconciliation Form, Thank You Letter, Antibiotic Education, Prescription Opioid Use form. - Follow up: Private Physician; When: 2 - 3 days; Reason: Worsening of condition. - Problem is new. - Symptoms have improved. Signatures: Dispatcher [employer] Evie Sommers RN RN iw Mario Canales MD MD rn Page, Corey, PA PA cp Gardose, Michele, RN RN mg2 Corrections: (The following items were deleted from the chart) 06/29 20:22 20:22 Normal except: K 3.4; CL 109. cp cp 21:10 20:52 06/29/2019 20:52 Discharged to Home. Impression: Cough; Shortness of breath. mg2 Condition is Stable. Forms are Medication Reconciliation Form, Thank You Letter, Antibiotic Education, Prescription Opioid Use. Follow up: Private Physician; When: 2 - 3 days; Reason: Worsening of condition. Problem is new. Symptoms have improved. cp
--- NOTE | 2019-06-29 20:53 | ER ---
Nurse's Notes [facility] Name: Aundrea Cisneros Age: 44 yrs Sex: Female : 1975 Arrival Date: 06/29/2019 Time: 17:56 Bed 23 Private MD: Diagnosis: Cough;Shortness of breath Presentation: 06/29 18:33 Presenting complaint: Patient states: hx of chronic bronchitis/asthma, cough, SOB iw started yesterday, no fever, can;t get a good breath in. Transition of care: patient was not received from another setting of care. Onset of symptoms was June 28, 2019. Risk Assessment: Do you want to hurt yourself or someone else? Patient reports no desire to harm self or others. Initial Sepsis Screen: Does the patient meet any 2 criteria? No. Patient's initial sepsis screen is negative. Does the patient have a suspected source of infection? No. Patient's initial sepsis screen is negative. Care prior to arrival: None. 18:33 Method Of Arrival: Ambulatory iw 18:33 Acuity: ALEXANDRO 4 iw Triage Assessment: 21:09 General: Appears. Respiratory: the patient has mild shortness of breath. Respiratory: mg2 No deficits noted. Onset: The symptoms/episode began/occurred gradually. 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 - Social history:: Smoking status: Patient/guardian denies using tobacco. - Ebola Screening: : Patient negative for fever greater than or equal to 101.5 degrees Fahrenheit, and additional compatible Ebola Virus Disease symptoms Patient denies exposure to infectious person Patient denies travel to an Ebola-affected area in the 21 days before illness onset No symptoms or risks identified at this time. Screenin:42 Abuse screen: Denies threats or abuse. Denies injuries from another. Nutritional mg2 screening: No deficits noted. Tuberculosis screening: No symptoms or risk factors identified. Fall Risk IV access (20 points). Assessment: 20:00 Musculoskeletal: Circulation, motion, and sensation intact. Capillary refill < 3 mg2 seconds. 21:06 General: Appears in no apparent distress. comfortable, Behavior is calm, cooperative. mg2 Pain: Denies pain. Neuro: Level of Consciousness is awake, alert, obeys commands, Oriented to person, place, time, situation. Cardiovascular: Rhythm is sinus rhythm. Respiratory: Reports cough that is Airway is patent Respiratory effort is even, unlabored, Breath sounds are clear bilaterally. in mediastinum, right upper lobe, left upper lobe, right middle lobe, left lower lobe and right lower lobe. GI: No signs and/or symptoms were reported involving the gastrointestinal system. : No signs and/or symptoms were reported regarding the genitourinary system. EENT: No signs and/or symptoms were reported regarding the EENT system. Derm: Skin is intact, is healthy with good turgor, Skin is pink, warm \T\ dry. normal. Vital Signs: 18:49 Pulse Ox 98% on R/A; iw 19:13 BP 109 / 70; Pulse 92; Resp 18; Temp 97.6; Pulse Ox 99% on R/A; Weight 92.08 kg; Height aa1 5 ft. 3 in. (160.02 cm); Pain 0/10; 20:42 BP 103 / 71; Pulse 88; Resp 18; Pulse Ox 97% on R/A; mg2 19:13 Body Mass Index 35.96 (92.08 kg, 160.02 cm) aa1 ED Course: 17:56 Patient arrived in ED. rg4 18:34 Triage completed. iw 19:10 Arm band placed on right wrist. Patient placed in an exam room, on a stretcher, on aa1 pulse oximetry. 19:10 Patient has correct armband on for positive identification. Placed in gown. Bed in low aa1 position. Call light in reach. Pulse ox on. NIBP on. 19:11 Stephen Atkins PA is PHCP. cp 19:11 Mario Canales MD is Attending Physician. cp 19:18 Chidi Hernandez, PEPE is Primary Nurse. mg2 19:23 Chest Pa And Lat (2 Views) XRAY In Process Unspecified. EDMS 19:41 No provider procedures requiring assistance completed. Inserted saline lock: 20 gauge mg2 in right antecubital area, using aseptic technique. Blood collected. 21:07 IV discontinued, intact, bleeding controlled, No redness/swelling at site. Pressure mg2 dressing applied. Administered Medications: 19:43 Drug: Albuterol 2.5 mg Route: Inhalation; mg2 21:05 Follow up: Response: No adverse reaction; Marked relief of symptoms mg2 19:43 Drug: AtroVENT Aerosol 0.5 mg Route: Inhalation; mg2 21:05 Follow up: Response: No adverse reaction; Marked relief of symptoms mg2 Outcome: 20:52 Discharge ordered by MD. stephon 21:08 Discharged to home ambulatory. mg2 21:08 Condition: stable 21:08 Discharge instructions given to patient, Instructed on discharge instructions, follow up and referral plans. medication usage, Demonstrated understanding of instructions, follow-up care, medications, Prescriptions given X 2. 21:10 Patient left the ED. mg2 Signatures: Dispatcher [employer] EDChelly Roberts RN RN aa1 Evie Parks RN RN iw Stephen Atkins, Hansa Bobo cp rg4 Chidi Hernandez RN RN mg2
[2019-06-29 21:18] VITALS: TEMP 97.6
[2019-06-29 21:20] VITALS: BP 103/71; O2SAT 97
--- NOTE | 2019-06-30 12:12 | EKG ---
Test Date: 2019-06-29 Test Time: 19:37:25 Energy Assistant: CARLOST MEASUREMENT RESULTS: Intervals: Rate: 88 NM: 150 QRSD: 82 QT: 376 QTc: 454 Bradford: P: 34 NM: 150 QRS: 35 T: 22 INTERPRETIVE STATEMENTS: Normal sinus rhythm Normal ECG Compared to ECG 03/14/2019 15:00:06 T-wave abnormality no longer present Electronically Signed On 06-30-19 12:09:21 CDT by Rey Chu
== END 2019-06-29 21:10 | disposition home or self-care (01) ==
LOC: ER 17:55
DX: R06.02 Shortness of breath (principal)
CPT/HCPCS: 36415; 71046; 80048; 80076; 83735; 83880; 84484; 85025; 85610; 87804; 93005; 99285

== ENCOUNTER 2020-07-05 20:46 | Emergency (ER) | payer BC, SELFPAY ==
--- OUTSIDE RECORDS SUMMARY | 2020-07-05 20:49 | XMS REPORT | Continuity of Care Document ---
:1975 Author Organization [facility] t Address [facility] [place] [id number] Care Team Providers Name Role Phone Unavailable Unavailable Unavailable Problems This patient has no known problems. Allergies, Adverse Reactions, Alerts This patient has no known allergies or adverse reactions. Medications This patient has no known medications. Procedures This patient has no known procedures. Results This patient has no known results.
--- NOTE | 2020-07-05 21:55 | ER ---
Nurse's Notes [facility] Name: Aundrea Cisneros Age: 45 yrs Sex: Female : 1975 Arrival Date: 07/05/2020 Time: 20:55 Bed 4 Private MD: Diagnosis: Cystitis Presentation: 07/05 21:21 Chief complaint: Patient states: Suprapubic pain, groin pain x 3 days. Pain with ca1 urination, urinary urgency and frequency. Little blood in urine.. Hurts to walk or even sit like my bladder is falling out. Coronavirus screen: Client denies travel out of the [place] in the last 14 days. At this time, the client does not indicate any symptoms associated with coronavirus-19. Ebola Screen: Patient negative for fever greater than or equal to 101.5 degrees Fahrenheit, and additional compatible Ebola Virus Disease symptoms Patient denies exposure to infectious person. Patient denies travel to an Ebola-affected area in the 21 days before illness onset. No symptoms or risks identified at this time. Initial Sepsis Screen: Does the patient meet any 2 criteria? No. Patient's initial sepsis screen is negative. Does the patient have a suspected source of infection? No. Patient's initial sepsis screen is negative. Risk Assessment: Do you want to hurt yourself or someone else? Patient reports no desire to harm self or others. Onset of symptoms was July 05, 2020. 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 - Social history:: Smoking status: Patient denies any tobacco usage or history of. Screenin:00 Abuse screen: Denies threats or abuse. Nutritional screening: No deficits noted. ea Tuberculosis screening: No symptoms or risk factors identified. Fall Risk None identified. Assessment: 22:00 General: Appears uncomfortable, Behavior is calm, cooperative, appropriate for age. ea Pain: Complains of pain in suprapubic area. Neuro: Level of Consciousness is awake, alert, obeys commands, Oriented to person, place, time. Cardiovascular: Patient's skin is warm and dry. Respiratory: Airway is patent Respiratory effort is even, unlabored, Respiratory pattern is regular, symmetrical. Derm: Skin is pink, warm \T\ dry. 22:10 Reassessment: Patient and/or family updated on plan of care and expected duration. Pain ea level reassessed. Patient is alert, oriented x 3, equal unlabored respirations, skin warm/dry/pink. Discharge instruction given to patient, verbalized the understanding of instruction. Pt left ED ambulatory tolerating well. Vital Signs: 21:21 BP 116 / 70; Pulse 92; Resp 16 S; Temp 97.2(TE); Pulse Ox 96% on R/A; Weight 92.08 kg ca1 (R); Height 5 ft. 3 in. (160.02 cm) (R); Pain 10/10; 22:07 BP 101 / 58; Pulse 80; Resp 18; Pulse Ox 100% ; ea 21:21 Body Mass Index 35.96 (92.08 kg, 160.02 cm) ca1 ED Course: 20:55 Patient arrived in ED. am2 21:23 Triage completed. ca1 21:24 Arm band placed on right wrist. ca1 21:43 Brian Swenson MD is Attending Physician. pkl 21:54 Carolann Hays, PEPE is Primary Nurse. ea 22:00 Patient has correct armband on for positive identification. Bed in low position. Call ea light in reach. 22:11 No provider procedures requiring assistance completed. Patient did not have IV access ea during this emergency room visit. Administered Medications: 22:00 Drug: Pyridium 200 mg Route: PO; ea 22:12 Follow up: Response: Medication administered at discharge. ea 22:00 Drug: Cipro 500 mg Route: PO; ea 22:12 Follow up: Response: Medication administered at discharge. ea Outcome: 21:54 Discharge ordered by . pkl 22:11 Discharged to home ambulatory, with family. ea 22:11 Condition: stable 22:11 Discharge instructions given to patient, Instructed on discharge instructions, follow up and referral plans. medication usage, Demonstrated understanding of instructions, follow-up care, medications, Prescriptions given X 2. 22:12 Patient left the ED. ea Addendum: 07/09/2020 07:43 Addendum: Culture Results: Positive urine culture. No further action required. Bacteria i w sensitive to prescribed antibiotic. Signatures: Brian Swenson MD MD pkl Evie Parks RN Anu Germain Elena RN PEPE ea Tracie Cohen RN RN ca1
--- NOTE | 2020-07-05 21:55 | EDPHYS ---
Physician Documentation [facility] Name: Aundrea Cisneros Age: 45 yrs Sex: Female : 1975 Arrival Date: 07/05/2020 Time: 20:55 Bed 4 Private MD: ED Physician Brian Swenson HPI: 07/05 21:50 This 45 yrs old Female presents to ER via Ambulatory with complaints of Pain pkl With Urination, Urinary Frequency. 21:50 The patient presents with urinary symptoms, dysuria, frequency, hematuria, urgency. pkl Onset: The symptoms/episode began/occurred 3 day(s) ago. Associated signs and symptoms: The patient has no apparent associated signs or symptoms. 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 - Social history:: Smoking status: Patient denies any tobacco usage or history of. ROS: 21:50 Positive for urinary symptoms, urinary frequency, hematuria, burning with urination. pkl 21:50 Eyes: Negative for injury, pain, redness, and discharge, ENT: Negative for injury, pain, and discharge, Neck: Negative for injury, pain, and swelling, Cardiovascular: Negative for chest pain, palpitations, and edema, Respiratory: Negative for shortness of breath, cough, wheezing, and pleuritic chest pain, Abdomen/GI: Negative for abdominal pain, nausea, vomiting, diarrhea, and constipation, Back: Negative for injury and pain, MS/Extremity: Negative for injury and deformity, Skin: Negative for injury, rash, and discoloration, Neuro: Negative for headache, weakness, numbness, tingling, and seizure. Exam: 21:51 Head/Face: Normocephalic, atraumatic. Eyes: Pupils equal round and reactive to light, pkl extra-ocular motions intact. Lids and lashes normal. Conjunctiva and sclera are non-icteric and not injected. Cornea within normal limits. Periorbital areas with no swelling, redness, or edema. ENT: Nares patent. No nasal discharge, no septal abnormalities noted. Tympanic membranes are normal and external auditory canals are clear. Oropharynx with no redness, swelling, or masses, exudates, or evidence of obstruction, uvula midline. Mucous membranes moist. Neck: Trachea midline, no thyromegaly or masses palpated, and no cervical lymphadenopathy. Supple, full range of motion without nuchal rigidity, or vertebral point tenderness. No Meningismus. Chest/axilla: Normal chest wall appearance and motion. Nontender with no deformity. No lesions are appreciated. Cardiovascular: Regular rate and rhythm with a normal S1 and S2. No gallops, murmurs, or rubs. Normal PMI, no JVD. No pulse deficits. Respiratory: Lungs have equal breath sounds bilaterally, clear to auscultation and percussion. No rales, rhonchi or wheezes noted. No increased work of breathing, no retractions or nasal flaring. 21:51 Abdomen/GI: Bowel sounds: normal, Palpation: soft, mild abdominal tenderness, in the suprapubic area. 21:51 Back: Exam negative for acute changes. 21:51 Musculoskeletal/extremity: Extremities: all appear grossly normal, with no appreciated pain with palpation. 21:51 Skin: Exam negative for rash. 21:51 Neuro: Orientation: is normal, Mentation: is normal, Cranial nerves: grossly normal, Motor: is normal. Vital Signs: 21:21 BP 116 / 70; Pulse 92; Resp 16 S; Temp 97.2(TE); Pulse Ox 96% on R/A; Weight 92.08 kg ca1 (R); Height 5 ft. 3 in. (160.02 cm) (R); Pain 10/10; 22:07 BP 101 / 58; Pulse 80; Resp 18; Pulse Ox 100% ; ea 21:21 Body Mass Index 35.96 (92.08 kg, 160.02 cm) ca1 MDM: 21:43 Patient medically screened. pkl 21:51 Data reviewed: vital signs, nurses notes, lab test result(s). pk 07/05 21:28 Order name: Urine Microscopic Only pm1 07/05 21:37 Order name: Urine Dipstick--Ancillary (enter results) ar5 07/05 21:37 Order name: Urine --Ancillary (enter results) co5 07/05 21:45 Order name: Urine Culture ar5 07/05 21:25 Order name: Urine Dipstick-Ancillary (obtain specimen); Complete Time: 21:25 ca1 Administered Medications: 22:00 Drug: Pyridium 200 mg Route: PO; ea 22:12 Follow up: Response: Medication administered at discharge. ea 22:00 Drug: Cipro 500 mg Route: PO; ea 22:12 Follow up: Response: Medication administered at discharge. ea Disposition: 07/05/20 21:54 Discharged to Home. Impression: Cystitis. - Condition is Stable. - Prescriptions for Pyridium 200 mg Oral Tablet - take 1 tablet by ORAL route every 8 hours for 2 days; 6 tablet. Cipro 500 mg Oral Tablet - take 1 tablet by ORAL route every 12 hours for 7 days; 14 tablet. - Medication Reconciliation Form, Thank You Letter, Antibiotic Education, Prescription Opioid Use, Work release form form. - Follow up: Private Physician; When: 1 week; Reason: Re-evaluation by your physician. - Problem is new. - Symptoms have improved. Signatures: Dispatcher [employer] EDIA Brian Swenson MD MD pkl Carolann Hays RN RN ea Tracie Cohen RN RN ca1 Corrections: (The following items were deleted from the chart) 22:12 21:54 07/05/2020 21:54 Discharged to Home. Impression: Cystitis. Condition is Stable. ea Forms are Medication Reconciliation Form, Thank You Letter, Antibiotic Education, Prescription Opioid Use. Follow up: Private Physician; When: 1 week; Reason: Re-evaluation by your physician. Problem is new. Symptoms have improved. pkl
[2020-07-05] MEDS ORDERED: CIPROFLOXACIN HCL 500 MG TAB ONE (22:10)
[2020-07-05] MEDS ORDERED: PHENAZOPYRIDINE 100MG TAB PO ONE (22:10)
[2020-07-05 22:12] LABS: Urine Blood 3+ (NEG); Urine Glucose NEGATIVE (NEG); Urine Protein 2+ (NEG); Urine Specific Gravity >1.030 (1.005-1.030); Urine pH 5.5 (5.0-7.0)
[2020-07-05 22:27] VITALS: TEMP 97.2
[2020-07-05 22:29] VITALS: BP 101/58; O2SAT 100
[2020-07-05 23:17] LABS: Urine Culture Reflex Order NOT NEEDED; Urine RBC >50 /HPF (NONE SEEN); Urine Urothelial Cells <5 /HPF (NONE SEEN)
[2020-07-05 23:18] LABS: Urine Bacteria <20 /HPF (<20)
== END 2020-07-05 22:12 | disposition home or self-care (01) ==
LOC: ER 20:46
DX: N30.90 Cystitis, unspecified without hematuria (principal)
CPT/HCPCS: 81003; 81015; 81025; 87077; 87086; 87088; 87186; 99283

== ENCOUNTER 2021-08-14 17:38 | Emergency (ER) | payer BC ==
--- OUTSIDE RECORDS SUMMARY | 2021-08-14 17:42 | XMS REPORT | Continuity of Care Document ---
:1975 Author Organization [facility] t Address [address] [place] [address] [address] [place] [address] Care Team Providers Name Role Phone Unavailable Unavailable Unavailable Problems This patient has no known problems. Allergies, Adverse Reactions, Alerts This patient has no known allergies or adverse reactions. Medications This patient has no known medications. Procedures This patient has no known procedures. Results This patient has no known results.
--- NOTE | 2021-08-14 18:08 | ER ---
Nurse's Notes [facility] Name: Aundrea Cisneros Age: 46 yrs Sex: Female : 1975 Arrival Date: 08/14/2021 Time: 17:40 Bed 5 Private MD: Diagnosis: Periapical abscess without sinus Presentation: 08/14 17:58 Chief complaint: Patient states: Has a cracked tooth for over a year and noticed vg1 swelling x2 days ago. Pt lower left jaw appears to be swollen and tender to touch. Also states Left ear pain and headache. Coronavirus screen: Vaccine status: Patient reports being unvaccinated. Client denies travel out of the [place] in the last 14 days. Ebola Screen: Patient negative for fever greater than or equal to 101.5 degrees Fahrenheit, and additional compatible Ebola Virus Disease symptoms. Initial Sepsis Screen: Does the patient meet any 2 criteria? No. Patient's initial sepsis screen is negative. Does the patient have a suspected source of infection? No. Patient's initial sepsis screen is negative. Risk Assessment: Do you want to hurt yourself or someone else? Patient reports no desire to harm self or others. Onset of symptoms was August 12, 2021. 17:58 Method Of Arrival: Ambulatory vg1 17:58 Acuity: ALEXANDRO 3 vg1 Triage Assessment: 18:00 General: Appears in no apparent distress. uncomfortable, Behavior is calm, cooperative. vg1 Pain: Complains of pain in lower left first molar Pain currently is 10 out of 10 on a pain scale. EENT: Reports pain in mouth and left mandible. 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 - Social history:: Smoking status: Patient denies any tobacco usage or history of. Screenin:20 Abuse screen: Denies threats or abuse. Nutritional screening: No deficits noted. ll1 Tuberculosis screening: No symptoms or risk factors identified. Fall Risk Total May Fall Scale indicates No Risk (0-24 pts). Assessment: 18:20 Reassessment: No changes from previously documented assessment. Patient and/or family ll1 updated on plan of care and expected duration. Pain level reassessed. Patient is alert, oriented x 3, equal unlabored respirations, skin warm/dry/pink. 18:34 Reassessment: No changes from previously documented assessment. Patient and/or family ll1 updated on plan of care and expected duration. Pain level reassessed. Patient is alert, oriented x 3, equal unlabored respirations, skin warm/dry/pink. Vital Signs: 17:58 BP 130 / 83; Pulse 90; Resp 16; Temp 97.9(O); Pulse Ox 100% ; Weight 92.99 kg; Height 5 vg1 ft. 3 in. (160.02 cm); Pain 10/10; 18:34 BP 137 / 97; Pulse 91; Resp 16; Pulse Ox 100% ; ll1 17:58 Body Mass Index 36.31 (92.99 kg, 160.02 cm) vg1 ED Course: 17:40 Patient arrived in ED. as 18:00 Triage completed. vg1 18:00 Arm band placed on. vg1 18:03 Vlad Dempsey PA is PHCP. jr8 18:03 Stephen Mayfield MD is Attending Physician. jr8 18:05 PHCP role handed off by Vlad Dempsey PA pm1 18:05 Franklin Israel NP is PHCP. pm1 18:10 Oren Erickson RN is Primary Nurse. ll1 18:20 Patient has correct armband on for positive identification. Bed in low position. Call ll1 light in reach. Side rails up X 1. Cardiac monitoring not applicable on this patient. 18:35 No provider procedures requiring assistance completed. Patient did not have IV access ll1 during this emergency room visit. Administered Medications: 18:20 Drug: Clindamycin 600 mg Route: IM; Site: right gluteus; ll1 18:34 Follow up: Response: No adverse reaction ll1 18:20 Drug: [place] (HYDROcodone-acetaminophen) (7.5 mg-325 mg) 1 tabs {Note: rass 0.} Route: ll1 PO; 18:34 Follow up: Response: No adverse reaction; driving home.. ll1 Intake: Outcome: 18:07 Discharge ordered by . pm1 18:35 Discharged to home ambulatory. ll1 18:35 Condition: stable 18:35 Discharge instructions given to patient, Instructed on discharge instructions, follow up and referral plans. no drinking with medication, no driving heavy equipment, medication usage, Demonstrated understanding of instructions, follow-up care, medications, Prescriptions given X 2. 18:35 Patient left the ED. ll1 Signatures: Jessica Arceo Josh, PA PA 8 Franklin Israel NP TOOL PLANNER pm1 Michelle Atkinson, PEPE RN vg1 Oren Erickson RN RN ll1 Corrections: (The following items were deleted from the chart) 18:01 17:58 Chief complaint: Patient states: Has a cracked tooth for over a year and noticed vg1 swelling x2 days ago. Pt lower left jaw appears to be swollen and tender to touch. vg1 18:01 18:00 Social history: Smoking status: vg1 vg1
--- NOTE | 2021-08-14 18:08 | EDPHYS ---
Physician Documentation [facility] Name: Aundrea Cisneros Age: 46 yrs Sex: Female : 1975 Arrival Date: 08/14/2021 Time: 17:40 Bed 5 Private MD: ED Physician Stephen Mayfield HPI: 08/14 18:06 This 46 yrs old Female presents to ER via Ambulatory with complaints of Toothache, pm1 Abscess, Facial Swelling, Ear Pain. 18:06 The patient presents with pain, swelling. The problem is located in the lower left pm1 second bicuspid. Onset: The symptoms/episode began/occurred 2 day(s) ago. Duration: The symptoms are continuous. Modifying factors: The symptoms are alleviated by nothing, the symptoms are aggravated by chewing, food. Associated signs and symptoms: Pertinent positives: swelling, mandibular, Pertinent negatives: dysphagia, fever, inability to eat. Severity of symptoms: in the emergency department the symptoms are actually worse. The patient has not recently seen a physician. 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 - Social history:: Smoking status: Patient denies any tobacco usage or history of. ROS: 18:06 Constitutional: Negative for fever, chills, and weight loss. pm1 18:06 Neck: Negative for injury, pain, and swelling. 18:06 Cardiovascular: Negative for chest pain, palpitations, and edema, Respiratory: Negative for shortness of breath, cough, wheezing, and pleuritic chest pain. 18:06 MS/Extremity: Negative for injury and deformity, Skin: Negative for injury, rash, and discoloration, Neuro: Negative for headache, weakness, numbness, tingling, and seizure. 18:06 ENT: Positive for dental pain, ear pain, Negative for sore throat, difficulty swallowing, difficulty handling secretions, hoarseness. 18:06 Abdomen/GI: Negative for nausea and vomiting. 18:06 All other systems are negative. Exam: 18:06 Constitutional: This is a well developed, well nourished patient who is awake, alert, pm1 and in no acute distress. Head/Face: Normocephalic, atraumatic. 18:06 Neck: Trachea midline, no thyromegaly or masses palpated, and no cervical lymphadenopathy. Supple, full range of motion without nuchal rigidity, or vertebral point tenderness. No Meningismus. 18:06 Skin: Warm, dry with normal turgor. Normal color with no rashes, no lesions, and no evidence of cellulitis. MS/ Extremity: Pulses equal, no cyanosis. Neurovascular intact. Full, normal range of motion. 18:06 Eyes: Exam is negative for acute changes, Extraocular movements: no acute changes, Conjunctiva: no acute changes, no injection, Sclera: no acute changes, icterus, is not appreciated. 18:06 ENT: Mouth: Negative for trismus, Dental exam: dental caries, diffusely, specifically in the lower left first molar (#19) and lower left second bicuspid (#20), gum swelling, that is mild, specifically in the lower left first molar (#19), lower left second bicuspid (#20) and lower left first bicuspid (#21), Voice: no acute changes. 18:06 Cardiovascular: Exam negative for acute changes, Rate: normal, Rhythm: regular, Pulses: no pulse deficits are appreciated. 18:06 Respiratory: Exam negative for acute changes, respiratory distress, shortness of breath. 18:06 Neuro: Exam negative for acute changes, Orientation: is normal, Mentation: is normal, Motor: is normal, moves all fours, Gait: is steady, at a normal pace, without difficulty. Vital Signs: 17:58 BP 130 / 83; Pulse 90; Resp 16; Temp 97.9(O); Pulse Ox 100% ; Weight 92.99 kg; Height 5 vg1 ft. 3 in. (160.02 cm); Pain 10/10; 18:34 BP 137 / 97; Pulse 91; Resp 16; Pulse Ox 100% ; ll1 17:58 Body Mass Index 36.31 (92.99 kg, 160.02 cm) vg1 MDM: 18:03 Patient medically screened. jr8 18:06 Data reviewed: vital signs. Data interpreted: Pulse oximetry: on room air is 100 %. pm1 Interpretation: normal. 18:06 Counseling: I had a detailed discussion with the patient and/or guardian regarding: the pm1 historical points, exam findings, and any diagnostic results supporting the discharge/admit diagnosis, the need for outpatient follow up, for definitive care, a dentist, to return to the emergency department if symptoms worsen or persist or if there are any questions or concerns that arise at home. 18:09 ED course: PMPaware reviewed. pm1 Administered Medications: 18:20 Drug: Clindamycin 600 mg Route: IM; Site: right gluteus; ll1 18:34 Follow up: Response: No adverse reaction ll1 18:20 Drug: [place] (HYDROcodone-acetaminophen) (7.5 mg-325 mg) 1 tabs {Note: rass 0.} Route: ll1 PO; 18:34 Follow up: Response: No adverse reaction; driving home.. ll1 Disposition: 08/15 07:06 Co-signature as Attending Physician, Stephen Mayfield MD I agree with the assessment and shea plan of care. Disposition Summary: 08/14/21 18:07 Discharge Ordered Location: Home pm1 Problem: new pm1 Symptoms: have improved pm1 Condition: Stable pm1 Diagnosis - Periapical abscess without sinus pm1 Followup: pm1 - With: Emergency Department - When: As needed - Reason: Worsening of condition Followup: pm1 - With: Private Physician - When: 2 - 3 days - Reason: Recheck today's complaints, Continuance of care, Re-evaluation by your physician Discharge Instructions: - Discharge Summary Sheet pm1 - Dental Pain pm1 - Diet and Dental Disease pm1 Forms: - Medication Reconciliation Form pm1 - Thank You Letter pm1 - Antibiotic Education pm1 - Prescription Opioid Use pm1 Prescriptions: - acetaminophen-codeine 300-15 mg Oral tablet - take 2 tablet by ORAL route every 6 hours As needed as needed; 20 tablet; pm1 Refills: 0, Product Selection Permitted - Clindamycin HCl 300 mg Oral Capsule - take 1 capsule by ORAL route every 6 hours for 10 days; 40 capsule; Refills: 0, pm1 Product Selection Permitted Signatures: Stephen Mayfield MD MD cha Roszak, Josh, PA PA jr8 Franklin Israel, GABRIEL DISPATCHER TOW TRUCK pm1 Michelle Atkinson RN RN 1 Oren Erickson RN RN ll1 Corrections: (The following items were deleted from the chart) 08/14 18:01 18:00 Social history: Smoking status: vg1 vg1
[2021-08-14] MEDS ORDERED: HYDROCODONE/APAP 7.5/325 MG TAB ONE (18:13)
[2021-08-14] MEDS ORDERED: CLINDAMYCIN IV 150 MG/ML (4 mL) VIAL ONE (18:13)
[2021-08-14 18:43] VITALS: TEMP 97.9; O2SAT 100
[2021-08-14 18:49] VITALS: BP 137/97
== END 2021-08-14 18:35 | disposition home or self-care (01) ==
LOC: ER 17:38
DX: K04.7 Periapical abscess without sinus (principal)
CPT/HCPCS: 96372; 99283; S0077